=== PATIENT | female | born 1965 | race Caucasian/White ===

== ENCOUNTER → 2018-10-04 | Outpatient (REF) | payer BC | LOC: M SFHCPLAZ 15:28 | PROVIDERS: ATTEND Internal Medicine Infectious Disease | DX: L02.93 Carbuncle, unspecified (principal) ==

== ENCOUNTER → 2019-07-28 | Outpatient (REF) | payer BC | LOC: M SFHCPLAZ 15:03 | PROVIDERS: ATTEND Internal Medicine Infectious Disease | DX: L02.93 Carbuncle, unspecified (principal) ==